=== PATIENT | female | born 1965 | race Caucasian/White ===

== ENCOUNTER 2019-10-22 15:47 | Outpatient (CLI) | payer BC ==
--- NOTE | 2019-10-22 16:32 | MMO ---
Bilateral MAMMO Bilat Screen [facility]. CLINICAL HISTORY: Patient is 53 years old and is seen for screening. The patient has no family history of breast cancer. The patient has no personal history of cancer. The patient has a history of Excisional Biopsy at age 17 - benign. VIEWS: The views performed were: bilateral craniocaudal with tomosynthesis and bilateral mediolateral oblique with tomosynthesis. FILMS COMPARED: The present examination has been compared to a prior imaging study performed at [facility] on 08/12/2009. This study has been interpreted with the assistance of computer-aided detection. MAMMOGRAM FINDINGS: The breasts are heterogeneously dense, which could obscure a lesion on mammography. Finding 1: There are stable benign appearing calcifications seen in both breasts. Finding 2: There is a round mass measuring 20 millimeters with circumscribed margins seen in the middle central region of the right breast. Finding 3: There are new calcifications seen in the upper-outer region of the left breast. IMPRESSION: FINDING 1: STABLE BENIGN APPEARING CALCIFICATIONS IN BOTH BREASTS ARE BENIGN. FINDING 2: MASS IN THE RIGHT BREAST REQUIRES ADDITIONAL EVALUATION. AN ULTRASOUND EXAM IS RECOMMENDED. FINDING 3: NEW CALCIFICATIONS IN THE LEFT BREAST REQUIRE ADDITIONAL EVALUATION. ADDITIONAL PROJECTIONS (LEFT CRANIOCAUDAL SPOT COMPRESSION; LEFT CRANIOCAUDAL SPOT COMPRESSION MAGNIFICATION; LEFT MEDIOLATERAL OBLIQUE SPOT COMPRESSION; LEFT MEDIOLATERAL; AND LEFT MEDIOLATERAL SPOT COMPRESSION MAGNIFICATION) ARE RECOMMENDED. AN ULTRASOUND EXAM IS RECOMMENDED IF NEEDED. ADDITIONAL IMAGING. THE RESULTS OF THIS EXAM WERE SENT TO THE PATIENT. ACR BI-RADS Category 0 - Incomplete: Need additional imaging evaluation. [facility] will notify the patient of the need for additional imaging services. MAMMOGRAPHY NOTE: 1. A negative mammogram report should not delay a biopsy if a dominant of clinically suspicious mass is present. 2. Approximately 10% to 15% of breast cancers are not detected by mammography. 3. Adenosis and dense breasts may obscure an underlying neoplasm. Reported by: YURI HANSEN MD Electonically Signed: [id number]
--- NOTE | 2019-10-22 16:34 | RAD ---
RADIOGRAPH LUMBAR SPINE 4 VIEWS: DATE: 10/22/2019 HISTORY: 53-year-old female with low back pain and left lumbar radiculopathy. COMPARISON: None TECHNIQUE: All standing views. AP. Lateral views in flexion, extension, and neutral. FINDINGS: 5 lumbar-type vertebrae. Minimal right-convex lateral curvature centered at T12-L1. Vertebral body he ights are maintained. No spondylolisthesis. Somewhat severe disc space narrowing and endplate sclerosis at L5-S1. Mild disc space narrowing at L4-5. Moderate disc space narrowing at T12-L1 with a nterior endplate sclerosis and osteophytosis. No instability with flexion and extension. IMPRESSION: 1) lumbar spondylosis with degenerative disc disease (at least moderate) at T12-L1 and L5-S1. 2) no spondylolisthesis and no instability between flexion and extension
== END 2019-10-22 15:48 | disposition home or self-care (01) ==
LOC: BICMAMMO 15:47
PROVIDERS: ATTEND Nurse Practitioner Family
DX: Z12.31 Encounter for screening mammogram for malignant neoplasm of breast (principal); M46.92 Unspecified inflammatory spondylopathy, cervical region; M47.816 Spondylosis without myelopathy or radiculopathy, lumbar region; M51.35 Other intervertebral disc degeneration, thoracolumbar region; M51.37 Other intervertebral disc degeneration, lumbosacral region; R92.1 Mammographic calcification found on diagnostic imaging of breast; N63.10 Unspecified lump in the right breast, unspecified quadrant; Z91.89 Other specified personal risk factors, not elsewhere classified
CPT/HCPCS: 72110; 77063; 77067

== ENCOUNTER 2022-02-10 13:29 | Outpatient (CLI) | payer BC | END 2022-02-10 13:30 | disposition home or self-care (01) | LOC: MRI 13:29 | PROVIDERS: ATTEND Nurse Practitioner Family | DX: M47.816 Spondylosis without myelopathy or radiculopathy, lumbar region (principal); M51.35 Other intervertebral disc degeneration, thoracolumbar region; M51.36 Other intervertebral disc degeneration, lumbar region; M51.37 Other intervertebral disc degeneration, lumbosacral region; M47.817 Spondylosis without myelopathy or radiculopathy, lumbosacral region; M48.061 Spinal stenosis, lumbar region without neurogenic claudication; M48.07 Spinal stenosis, lumbosacral region | CPT/HCPCS: 72148 ==

== ENCOUNTER 2023-05-04 11:12 | Outpatient (CLI) | payer BC | END 2023-05-04 11:13 | disposition home or self-care (01) | LOC: RAD 11:12 | PROVIDERS: ATTEND Nurse Practitioner Family | DX: M47.814 Spondylosis without myelopathy or radiculopathy, thoracic region (principal) | CPT/HCPCS: 72070 ==

== ENCOUNTER 2023-06-03 10:48 | Outpatient (CLI) | payer BC | END 2023-06-03 10:49 | disposition home or self-care (01) | LOC: MRI 10:48 | PROVIDERS: ATTEND Nurse Practitioner Family | DX: M47.26 Other spondylosis with radiculopathy, lumbar region (principal); M48.07 Spinal stenosis, lumbosacral region; M47.815 Spondylosis without myelopathy or radiculopathy, thoracolumbar region; M47.817 Spondylosis without myelopathy or radiculopathy, lumbosacral region | CPT/HCPCS: 72148 ==